=== PATIENT | male | born 1985 | race African-American/Black ===

== ENCOUNTER 2023-11-21 12:42 | Emergency (ER) | payer OTHER ==
[~2023-11-21] VITALS: Ht 172.7 cm; Wt 68.0 kg
[2023-11-21] VITALS (7 sets, daily range): BP systolic 113–128; BP diastolic 76–87
[2023-11-21] MEDS ORDERED: KETOROLAC TROMETHAMINE 30 MG/ML SDV IM ONE (12:55)
[2023-11-21] MEDS ORDERED: ORPHENADRINE CITRATE 30 MG/ML AMP IM ONE (12:55)
[2023-11-21] MEDS ORDERED: METHOCARBAMOL 500 MG/TAB PO ONE (13:45)
[2023-11-21] MEDS ORDERED: METHOCARBAMOL500 MG PO (14:34)
[2023-11-21] MEDS ORDERED: NAPROXEN500 MG PO (14:34)
== END 2023-11-21 14:39 | disposition home or self-care (01) | DRG 552 ==
LOC: ED 12:42
DX: M54.2 Cervicalgia (principal); M54.9 Dorsalgia, unspecified; M25.512 Pain in left shoulder; M25.532 Pain in left wrist; V53.5XXA Driver of pick-up truck or van injured in collision with car, pick-up truck or van in traffic accident, initial encounter